=== PATIENT | female | born 1940 | race Two or more races ===

== ENCOUNTER 2023-06-11 10:50 | Outpatient (CLI) | payer OTHER | END 2023-06-11 10:56 | disposition home or self-care (01) | LOC: RAD 10:50 | DX: M54.42 Lumbago with sciatica, left side (principal); M43.16 Spondylolisthesis, lumbar region; M47.26 Other spondylosis with radiculopathy, lumbar region; M47.22 Other spondylosis with radiculopathy, cervical region; M47.27 Other spondylosis with radiculopathy, lumbosacral region; M99.73 Connective tissue and disc stenosis of intervertebral foramina of lumbar region; M85.80 Other specified disorders of bone density and structure, unspecified site; M41.56 Other secondary scoliosis, lumbar region; I10 Essential (primary) hypertension; E78.2 Mixed hyperlipidemia; N39.498 Other specified urinary incontinence ==